=== PATIENT | male | born 1965 | race Caucasian/White ===

== ENCOUNTER 2017-10-30 18:31 | Emergency (ER) | payer BC ==
[~2017-10-30] VITALS: Ht 177.8 cm; Wt 90.7 kg
--- NOTE | 2017-10-30 19:00 | NUR ---
REPORT RECEIVED FROM OMAIRA HALE FOR [facility].
--- NOTE | 2017-10-30 19:00 | NUR ---
19G IV TO L AC X 1 ATTEMPT USING ASEPTIC TECH, BLOOD HANDED OVER TO THE LAB AT BEDSIDE. IV FLUSHES EASILY WITH NS, NO S/S OF INFILTRATION NOTED.
--- NOTE | 2017-10-30 19:05 | NUR ---
PT IN ER BED 12. BIB C/O ABD PAIN WITH N/V SINCE 1400 HOURS. 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 VSS/RESP EVEN UNLABORED/NAD NOTED/SKIN WARM AND DRY/ AFEBRILE/AOX4. AWAITING MD QUACH.
[2017-10-30] MEDS ORDERED: ONDANSETRON HCL/PF 4 MG/2 ML VIAL ONE (19:15)
[2017-10-30] MEDS ORDERED: HYDROMORPHONE INJ 2 MG/ML DISP.SYRIN ONE (19:15)
[2017-10-30] MEDS: ONDANSETRON HCL/PF 4 MG/2 ML VIAL IVP ONE (19:15)
[2017-10-30] MEDS: IV NS 0.9% 1,000 ML BAG IV ONE (19:15)
[2017-10-30] MEDS ORDERED: KETOROLAC TROMETHAMINE 15 MG/ML VIAL ONE (19:15)
[2017-10-30] MEDS: KETOROLAC TROMETHAMINE INJ 30 MG/ML VIAL IV ONE (19:17)
[2017-10-30] MEDS: HYDROMORPHONE INJ 2 MG/ML DISP.SYRIN IV ONE (19:19)
[2017-10-30 19:32] LABS: BASOPHILS % (AUTO) 0.1 % (0.0-2.0); EOSINOPHILS % (AUTO) 0.3 % (0.0-6.0); HEMATOCRIT 45 % (39-51); HEMOGLOBIN 15.5 g/dL (13.5-17.5); LYMPHOCYTES # (AUTO) 1.8 /CMM (0.8-4.8); LYMPHOCYTES % (AUTO) 12.8 % (20.0-44.0); MEAN CORPUSCULAR HGB CONC 35 g/dl (31.0-36.0); MEAN CORPUSCULAR VOLUME 90 fL (80-96); MONOCYTES # (AUTO) 0.6 /CMM (0.1-1.30); MONOCYTES % (AUTO) 4.4 % (2.0-12.0); NEUTROPHILS % (AUTO) 82.4 % (43.0-81.0); PLATELET COUNT (AUTO) 294 /CMM (150-450); RDW COEFFICIENT OF VARIATION 11.6 (11.5-15.0); RED BLOOD CELL COUNT(AUTO) 4.97 MIL/uL (4.5-6.0); WHITE BLOOD COUNT (AUTO) 14.4 K/uL (4.3-11.0)
--- NOTE | 2017-10-30 19:34 | NUR ---
PT TO CT VIA STRETCHER, VSS.
[2017-10-30 19:37] LABS: CALCIUM, SERUM 9.2 mg/dL (8.5-10.1); CREATININE 1.2 mg/dL (0.6-1.3)
--- NOTE | 2017-10-30 19:45 | NUR ---
PT BACK FROM CT.
--- NOTE | 2017-10-30 20:01 | NUR ---
URINE SPECMIEN OBTAINED AND SENT TO THE LAB.
[2017-10-30 20:04] LABS: APPEARANCE,URINE Clear (CLEAR); BILIRUBIN,URINE Negative (NEGATIVE); BLOOD, URINE Large Ery/uL (NEGATIVE); COLOR,URINE Yellow (YELLOW); KETONES,URINE Negative (NEGATIVE); LEUKOCYTE ESTERASE ,URINE Negative (NEGATIVE); NITRITE, URINE Negative (NEGATIVE); PH,URINE 5.5 (5.0-8.0); PROTEIN,URINE Negative (NEGATIVE); UGLUCOSE Negative (NEGATIVE); UROBILINOGEN,URINE 0.2 EU/dL (0.2)
[2017-10-30 20:07] LABS: BACTERIA,URINE Few /HPF (None Seen); RBC,URINE 51-80 /HPF (0-2); SQUAMOUS EPITHELIAL CELL,UR Few /HPF (None Seen); WBC,URINE 0-2 /HPF (0-3)
--- NOTE | 2017-10-30 21:04 | NUR ---
PT SPEAKING WITH AT BEDSIDE, VSS. RN TO CONTINUE TO PROVIDE SAFETY/COMFORT MEASURES.
--- NOTE | 2017-10-30 21:16 | NUR ---
IV removed. Catheter intact and site benign. Pressure and 4x4 applied to site. No bleeding noted. Patient discharged with to home in stable condition. Written and verbal after care instructions given, patient instructed not to drive. Patient verbalizes understanding of instruction. Patient is awake and alert to self, day, and place. Patient ambulatory with a steady gait.
[2017-10-30 21:18] VITALS: BP 136/84
== END 2017-10-30 21:18 | disposition home or self-care (01) ==
LOC: ER 18:38
DX: N20.0 Calculus of kidney (principal)
CPT/HCPCS: 36415; 80048-TC; 81000-TC; 85025-TC; A4606; J1170; J1885; J2405; J7030; Z7610